=== PATIENT | female | born 1975 | race Caucasian/White ===

== ENCOUNTER → 2020-08-10 08:55 | Outpatient (CLI) | payer OTHER, SELFPAY ==
--- NOTE | ~2020-08-10 | US_ITS ---
EXAMINATION: US thyroid EXAM DATE: 08/10/2020 10:17 INDICATION: Thyromegaly, neck mass. TECHNIQUE: Multiple grayscale and Doppler images of the thyroid were obtained (by a technologist who performed the scan) and subsequently reviewed. Individual nodules and recommendations may be reporte d in accordance with TI-RADS system as designated by the 2017 ACR White Paper TI-RADS committee. The re is no prior study for comparison. FINDINGS: The right thyroid lobe measures 4.2 x 1.3 x 1.2 cm, the left measuring 4.7 x 1.3 x 1.5 cm. These dime nsions are within normal size limits. There is homogeneous thyroid echogenicity with a tiny right lob e nodule measuring 3 mm, not clinically significant. There are some small cervical lymph nodes identi fied. Scanning in the area of concern superior to the thyroid isthmus demonstrates a 3 mm hyperechoic subcu taneous nodule, nonspecific region. Could be granuloma, fat necrosis, proteinaceous sebaceous cyst. M ost likely not a clinically significant finding. If this grows then consider a repeat ultrasound. IMPRESSION: 1. Small midline subcutaneous nodule at symptomatic region most likely not clinically significant. C linical follow-up recommended. 2. Unremarkable thyroid. Reviewed, dictated and finalized at location B. IMPRESSION: 1. Small midline subcutaneous nodule at symptomatic region most likely not cli nically significant. Clinical follow-up recommended. 2. Unremarkable thyroid.
== END ==
PROVIDERS: PCP Internal Medicine; Visit Provider Physician Assistant Medical
DX: E01.0 Iodine-deficiency related diffuse (endemic) goiter (principal); R22.1 Localized swelling, mass and lump, neck
CPT/HCPCS: 76536

== ENCOUNTER 2022-04-26 08:57 | Emergency (ER) | payer OTHER, SELFPAY ==
--- NOTE | ~2022-04-26 | XR_ITS ---
Left ankle Technique: AP, oblique, and lateral views were obtained. Clinical History: Pain Findings: No acute fracture or dislocation is seen. Osseous alignment is anatomic. Ankle mortise and other visualized joint spaces are preserved. Soft tissues are otherwise unremarkable. Impression: Unremarkable left ankle. Reviewed, dictated and finalized at [facility]. [employer] Impression: Unremarkable left ankle.
[2022-04-26 09:09] VITALS: BP 140/81; PULSE 86; RESP 16; TEMP 37.6; O2SAT 100
--- NOTE | 2022-04-26 09:18 | ED.LOWEXIN ---
HPI - Extremity Injury (Lower) General Chief Complaint: Extremity Injury, Lower Stated Complaint: INJURED L ANKLE Time Seen by Provider: 04/26/22 09:14 Source: patient Mode of arrival: ambulatory Limitations: no limitations History of Present Illness HPI Narrative: Patient presents today complaining of left ankle pain. Yesterday she was getting into her car and the wind blew her car door on her lateral ankle. States swelling has improved with ice, ibuprofen, and compression socks. She currently rates her pain 5/10, which increases with walking. Denies numbness or tingling in the leg or foot. Related Data Allergies Allergy/AdvReac Type Severity Reaction Status Date / Time No Known Allergies Allergy Unverified 12/19/21 11:06 Review of Systems Review of Systems: CONSTITUTIONAL: Denies body aches, fever, chills, or sweats. EYES: Denies visual changes, redness, or discharge. ENT: Denies rhinorrhea, congestion, sore throat, or otalgia. CARDIOVASCULAR: Denies chest pain, palpitations, or edema. RESPIRATORY: Denies cough or dyspnea. GASTROINTESTINAL: Denies abdominal pain, nausea, vomiting, or diarrhea. GENITOURINARY: Denies dysuria or hematuria. SKIN: Denies rash, itching, or wounds. MUSCULOSKELETAL: Denies back pain,or myalgia.+ left ankle pain NEUROLOGIC: Denies headache, numbness, tingling, or weakness. PSYCH: Denies depression or anxiety. [facility] Past Medical History Medical History Primary biliary cirrhosis Raynauds disease Sjogren's disease Comments At time of signature, I have reviewed and agree with nursing past medical, surgical, social and family history unless otherwise noted. Please see nursing chart for further information. There is no relevant family history pertinent to the presenting complaint Exam Narrative: GENERAL: Well-appearing, well-nourished, and in no acute distress. HEAD: Normocephalic, atraumatic. EYES: EOMI. No redness or drainage. Conjunctivae normal. ENT: Mucous membranes pink and moist. NECK: Normal AROM. CHEST: No respiratory distress. EXTREMITIES: Left ankle: Large area of ecchymosis and mild edema to the lateral ankle, including the malleolus with tenderness to palpation. No tenderness to the foot. Distal sensation intact. Capillary refill normal. Pedal pulse normal. Full range of motion of the ankle with increased pain. SKIN: Warm, dry, no rash. Capillary refill normal. Normal skin turgor. NEURO: No focal deficits. Alert and oriented x3. Gait steady. PSYCH: Normal affect. No signs of depression or anxiety. Course Course Level of Care: Express Care Visit Vital Signs Vital signs: Vital Signs Temperature 99.6 F 04/26/22 09:09 Pulse Rate 86 04/26/22 09:09 Respiratory Rate 16 04/26/22 09:09 Blood Pressure 140/81 04/26/22 09:09 Pulse Oximetry 100 04/26/22 09:09 Temperature 99.6 F 04/26/22 09:09 Pulse Rate 86 04/26/22 09:09 Respiratory Rate 16 04/26/22 09:09 Blood Pressure 140/81 04/26/22 09:09 Pulse Oximetry 100 04/26/22 09:09 Reviewed. Pt has been instructed to follow up with her PCP regarding her elevated blood pressure today. MDM - Extremity Injury (Lower) MDM Narrative Medical decision making narrative: X-ray will be ordered to rule out fracture. X-rays negative. Discussed results with patient. She will continue conservative treatments. No prescription indicated at this time. Differential Diagnosis Differential diagnosis: Likely ankle sprain and strain and other (Contusion, ankle fracture) Imaging Data Radiologist's impression: ITS Impressions Ankle X-Ray 04/26/22 09:19 Impression: Unremarkable left ankle. Critical Care Time Critical Care Time Critical Care Time: No Discharge Plan Discharge Clinical Impression: Contusion of ankle, left Qualifiers: Encounter type: initial encounter Qualified Code(s): S90.02XA - Contusion of
== END 2022-04-26 09:31 | disposition home or self-care (01) ==
PROVIDERS: Emergency Provider Nurse Practitioner; PCP Internal Medicine
DX: S90.02XA Contusion of left ankle, initial encounter (principal); W20.8XXA Other cause of strike by thrown, projected or falling object, initial encounter; K74.3 Primary biliary cirrhosis; I73.00 Raynaud's syndrome without gangrene; M35.00 Sjogren syndrome, unspecified
CPT/HCPCS: 73610; 99203; G0463